=== PATIENT | female | born 1995 | race Caucasian/White ===

== ENCOUNTER 2016-12-06 20:34 | Emergency (ER) | payer MEDICAID, OTHER ==
[2016-12-06] MEDS ORDERED: ONDANSETRON ODT 4 MG TAB ONE (21:47)
[2016-12-06] MEDS ORDERED: DEXAMETHASONE 4 MG/ML VIAL ONE (22:39)
[2016-12-06] MEDS ORDERED: KETOROLAC 60 MG/2 ML VIAL IM ONE (22:40)
[2016-12-06] MEDS ORDERED: CYCLOBENZAPRINE 10 MG TAB ONE (22:40)
== END 2016-12-06 23:33 | disposition home or self-care (01) ==
LOC: FASTR 20:34
DX: M54.2 Cervicalgia (principal); G89.29 Other chronic pain; S39.012A Strain of muscle, fascia and tendon of lower back, initial encounter; M54.42 Lumbago with sciatica, left side; G89.21 Chronic pain due to trauma; R51 Headache; V89.2XXA Person injured in unspecified motor-vehicle accident, traffic, initial encounter; Z87.891 Personal history of nicotine dependence
CPT/HCPCS: 36415; 72072; 72100; 81001; 84703; 87088; 96372